=== PATIENT | male | born 1970 | race Caucasian/White ===

== ENCOUNTER 2017-11-15 10:56 | Emergency (ER) | payer OTHER ==
[~2017-11-15] VITALS: Ht 180.3 cm; Wt 83.9 kg
[2017-11-15] MEDS ORDERED: ANAPROX DS550 MG PO (12:40)
== END 2017-11-15 12:44 | disposition home or self-care (01) ==
LOC: ED 10:56
DX: M79.641 Pain in right hand (principal); W23.0XXA Caught, crushed, jammed, or pinched between moving objects, initial encounter; Y93.89 Activity, other specified; Y92.89 Other specified places as the place of occurrence of the external cause; Y99.9 Unspecified external cause status

== ENCOUNTER 2018-03-04 17:39 | Emergency (ER) | payer OTHER ==
[~2018-03-04] VITALS: Wt 77.1 kg
--- NOTE | ~2018-03-04 | EKG ---
[place], [place] ELECTROCARDIOGRAM REPORT NAME: NABEEL CERNA UNIT #: [id number] ROOM: DOCTOR: EPIPHANY DRAFT REPORT BIRTHDATE: [birth year] [facility] Test Date: 2018-03-04 Test Time: 18:13:52 Pat Name: NABEEL CERNA Department: ED Room: 3 Gender: M Maintenance Chief: Ryan Jean : 1970 Requested By: CRYSTAL ESPINAL Order Number: [id number] Reading MD: Mohamud Rose MD Measurements Intervals [place] Rate: 84 P: 55 OK: 130 QRS: 4 QRSD: 92 T: 32 QT: 357 QTc: 422 Interpretive Statements Sinus rhythm Normal ECG Electronically Signed On 03-08-2018 14:21:31 PST by Mohamud Rose MD CM:EKGRPT:ELECTROCARDIOGRAM REPORT 1813 1421 CRYSTAL CHILEL DRAFT REPORT CRYSTAL ESPINAL MD
[~2018-03-04 17:39] MED LIST: ANAPROX DS550 MG PO
[2018-03-04 18:01] LABS: BASO % 0.4 % (0.0-1.0); EOS # 0.2 10*3/uL (0.0-0.4); EOS % 2.2 % (1.0-4.0); HEMATOCRIT 43.7 % (42.0-52.0); HEMOGLOBIN 15.7 g/dl (14.0-18.0); LYMPH # 3.8 10*3/uL (1.3-4.4); LYMPH % 46.1 % (27.0-41.0); MEAN CELL VOLUME 96.7 fl (80.0-94.0); MEAN CORPUSCULAR HGB 34.7 pg (27.0-31.0); MEAN CORPUSCULAR HGB CONC 35.9 g/dl (33.0-37.0); MEAN PLATELET VOLUME 10.9 fl (9.6-12.3); MONO # 0.6 10*3/uL (0.1-1.0); MONO % 7.3 % (3.0-9.0); NEUT # 3.6 10*3/uL (2.3-7.9); NEUT % 43.9 % (47.0-73.0); PLATELET COUNT AUTOMATED 225 10*3/uL (130-400); RED BLOOD COUNT 4.52 10*6/uL (4.50-5.90); RED CELL DISTRI WIDTH 11.7 % (0-14.5); WHITE BLOOD COUNT 8.2 10*3/uL (4.8-10.8)
[2018-03-04 18:16] LABS: ALBUMIN 3.9 gm/dl (3.1-4.5); ALKALINE PHOSPHATASE 102 U/L (45-117); BUN 15 mg/dl (7-24); CHLORIDE 107 mmol/L (98-107); SGOT/AST 23 IU/L (3-35); SGPT/ALT 34 U/L (12-78); SODIUM 140 mmol/L (136-145); TOTAL PROTEIN 8.1 gm/dL (6.4-8.2)
[2018-03-06] MEDS ORDERED: Motrin,Rufen800 MG PO (19:44)
[2018-03-06] MEDS ORDERED: PREDNISONE10 MG PO (19:44)
[2018-03-06] MEDS ORDERED: CYCLOBENZAPRINE5 M3 PO (19:44)
== END 2018-03-04 19:02 | disposition home or self-care (01) ==
LOC: ED 17:39
PROVIDERS: Emergency Medicine
DX: B34.9 Viral infection, unspecified (principal); R19.7 Diarrhea, unspecified; R42 Dizziness and giddiness; F17.200 Nicotine dependence, unspecified, uncomplicated